=== PATIENT | male | born 1980 | race Hispanic/Latino ===

== ENCOUNTER 2019-07-14 19:45 | Emergency (ER) | payer SELFPAY ==
[2019-07-14] MEDS ORDERED: VALACYCLOVIR 500 MG TAB ONE (21:36)
[2019-07-14] MEDS ORDERED: IBUPROFEN 400 MG TAB ONE (21:37)
--- NOTE | 2019-07-14 22:05 | ER ---
Nurse's Notes [facility] Name: Luis Carlos Cobian Age: 38 yrs Sex: Male : 1980 Arrival Date: 07/14/2019 Time: 19:49 Bed 16 Private MD: Diagnosis: Acute pharyngitis;Herpesviral [herpes simplex] infections Presentation: 07/14 19:57 Presenting complaint: Patient states: "I started feeling a bad last night," Reports aj1 chills. Took Thera-flu and went to bed. When he woke up today he still had chills. Now he's having some back pain, sore throat, and he noticed blisters on his top lip. reports subjective fever. Transition of care: patient was not received from another setting of care. Onset of symptoms was July 13, 2019. Risk Assessment: Do you want to hurt yourself or someone else? Patient reports no desire to harm self or others. Initial Sepsis Screen: Does the patient meet any 2 criteria? No. Patient's initial sepsis screen is negative. Does the patient have a suspected source of infection? No. Patient's initial sepsis screen is negative. Care prior to arrival: None. 19:57 Method Of Arrival: Ambulatory aj1 19:57 Acuity: OPHELIA 4 aj1 Triage Assessment: 19:59 General: Appears in no apparent distress. uncomfortable, Behavior is calm, cooperative, aj1 appropriate for age. Pain: Complains of pain in back Pain currently is 9 out of 10 on a pain scale. Neuro: Level of Consciousness is awake, alert, obeys commands. Cardiovascular: Patient's skin is warm and dry. Respiratory: Airway is patent Respiratory effort is even, unlabored, Respiratory pattern is regular, symmetrical. Musculoskeletal: Range of motion: intact in all extremities. Historical: - Allergies: 19:59 No Known Allergies; aj1 - Home Meds: 19:59 None [Active]; aj1 - PMHx: 19:59 None; aj1 - PSHx: 19:59 None; aj1 - Immunization history:: Flu vaccine is not up to date. - Social history:: Smoking status: Patient/guardian denies using tobacco. - Ebola Screening: : Patient denies travel to an Ebola-affected area in the 21 days before illness onset. Screenin:30 Abuse screen: Denies threats or abuse. Nutritional screening: No deficits noted. jb4 Tuberculosis screening: No symptoms or risk factors identified. Fall Risk None identified. Assessment: 20:30 General: Appears in no apparent distress. uncomfortable, Behavior is calm, cooperative, jb4 appropriate for age. Pain: Complains of pain in right mid back, generalized Pain does not radiate. Pain currently is 10 out of 10 on a pain scale. Quality of pain is described as burning, aching, stabbing, throbbing. Neuro: Level of Consciousness is awake, alert, obeys commands, Oriented to person, place, time, situation. Cardiovascular: Patient's skin is warm and dry. Respiratory: Airway is patent Respiratory effort is even, unlabored, Respiratory pattern is regular, symmetrical. GI: No deficits noted. No signs and/or symptoms were reported involving the gastrointestinal system. : No deficits noted. No signs and/or symptoms were reported regarding the genitourinary system. EENT: No deficits noted. No signs and/or symptoms were reported regarding the EENT system. Derm: Skin is intact, Skin is pink, warm \\T\\ dry. Musculoskeletal: Circulation, motion, and sensation intact. Range of motion: intact in all extremities. 21:30 Reassessment: Patient appears in no apparent distress at this time. Patient and/or jb4 family updated on plan of care and expected duration. Pain level reassessed. Patient is alert, oriented x 3, equal unlabored respirations, skin warm/dry/pink. 22:22 Reassessment: Patient appears in no apparent distress at this time. Patient and/or jb4 family updated on plan of care and expected duration. Pain level reassessed. Patient is alert, oriented x 3, equal unlabored respirations, skin warm/dry/pink. Patient states feeling better. Vital Signs: 19:59 BP 152 / 87; Pulse 93; Resp 18; Temp 98.6; Pulse Ox 98% on R/A; Weight 81.65 kg (R); aj1 Height 5 ft. 6 in. (167.64 cm) (R); Pain 9/10; 21:15 BP 133 / 86; Pulse 86; Resp 16; Pulse Ox 97% on R/A; jb4 22:00 BP 137 / 89; Pulse 89; Resp 16; Pulse Ox 98% on R/A; jb4 19:59 Body Mass Index 29.05 (81.65 kg, 167.64 cm) aj1 ED Course: 19:49 Patient arrived in ED. mr 19:59 Triage completed. aj1 19:59 Arm band placed on Patient placed in waiting room, Patient notified of wait time. aj1 20:14 Federica Escalante FNP-C is [facility]. kb 20:14 Shailesh Benites MD is Attending Physician. kb 20:29 Jamie Brown, RN is Primary Nurse. jb4 20:30 Patient has correct armband on for positive identification. Bed in low position. Call jb4 light in reach. Side rails up X 1. 22:23 No provider procedures requiring assistance completed. Patient did not have IV access jb4 during this emergency room visit. Administered Medications: 21:57 Drug: Ibuprofen 800 mg Route: PO; jb4 22:22 Follow up: Response: No adverse reaction; Pain is decreased jb4 21:57 Drug: Valtrex 1000 mg Route: PO; jb4 22:22 Follow up: Response: No adverse reaction jb4 Outcome: 22:05 Discharge ordered by . kb 22:23 Discharged to home ambulatory, with friend. jb4 22:23 Condition: stable 22:23 Discharge instructions given to patient, family, Instructed on discharge instructions, follow up and referral plans. Demonstrated understanding of instructions, follow-up care. 22:23 Patient left the ED. jb4 Signatures: Federica Escalante FNP-C FNP-Mary Jane Parmar RN RN aj Kerr Jud mr Jamie Brown, RN RN jb4
--- NOTE | 2019-07-14 22:06 | EDPHYS ---
Physician Documentation [facility] Name: Luis Carlos Cobian Age: 38 yrs Sex: Male : 1980 Arrival Date: 07/14/2019 Time: 19:49 Bed 16 Private MD: ED Physician Shailesh Benites HPI: 07/14 22:02 This 38 yrs old Male presents to ER via Ambulatory with complaints of Fever, kb Back Pain, Facial Swelling. 22:02 The patient presents with sore throat. The patient describes throat pain as constant. kb Onset: The symptoms/episode began/occurred Onset: The symptoms/episode began/occurred last night. The patient has not experienced similar symptoms in the past. The patient has not recently seen a physician. 22:03 Severity of symptoms: At their worst the symptoms were moderate, in the emergency kb department the symptoms are unchanged. Modifying factors: The symptoms are alleviated by nothing, the symptoms are aggravated by swallowing, Patient's oral intake status: good. Associated signs and symptoms: Pertinent positives: chills, flu-like symptoms, Sore throat blisters on lip. Pt reports body aches, malaise, sore throat, fever, chills and blisters on top lip that started last night. . Historical: - Allergies: 19:59 No Known Allergies; aj1 - Home Meds: 19:59 None [Active]; aj1 - PMHx: 19:59 None; aj1 - PSHx: 19:59 None; aj1 - Immunization history:: Flu vaccine is not up to date. - Social history:: Smoking status: Patient/guardian denies using tobacco. - Ebola Screening: : Patient denies travel to an Ebola-affected area in the 21 days before illness onset. ROS: 22:01 Neck: Negative for injury, pain, and swelling, Cardiovascular: Negative for chest pain, kb palpitations, and edema, Respiratory: Negative for shortness of breath, cough, wheezing, and pleuritic chest pain, Abdomen/GI: Negative for abdominal pain, nausea, vomiting, diarrhea, and constipation, MS/Extremity: Negative for injury and deformity, Neuro: Negative for headache, weakness, numbness, tingling, and seizure. 22:01 Constitutional: Positive for body aches, chills, fatigue, fever, malaise. 22:01 ENT: Positive for sore throat. 22:01 Skin: Positive for blisters on top lip. Exam: 22:01 Constitutional: This is a well developed, well nourished patient who is awake, alert, kb and in no acute distress. Head/Face: Normocephalic, atraumatic. Neck: Trachea midline, no thyromegaly or masses palpated, and no cervical lymphadenopathy. Supple, full range of motion without nuchal rigidity, or vertebral point tenderness. No Meningismus. Chest/axilla: Normal chest wall appearance and motion. Nontender with no deformity. No lesions are appreciated. Cardiovascular: Regular rate and rhythm with a normal S1 and S2. No gallops, murmurs, or rubs. Normal PMI, no JVD. No pulse deficits. Respiratory: Lungs have equal breath sounds bilaterally, clear to auscultation and percussion. No rales, rhonchi or wheezes noted. No increased work of breathing, no retractions or nasal flaring. Abdomen/GI: Soft, non-tender, with normal bowel sounds. No distension or tympany. No guarding or rebound. No evidence of tenderness throughout. Skin: Warm, dry with normal turgor. Normal color with no rashes, no lesions, and no evidence of cellulitis. MS/ Extremity: Pulses equal, no cyanosis. Neurovascular intact. Full, normal range of motion. Neuro: Awake and alert, GCS 15, oriented to person, place, time, and situation. Cranial nerves II-XII grossly intact. Motor strength 5/5 in all extremities. Sensory grossly intact. Cerebellar exam normal. Normal gait. 22:01 ENT: TM's: are normal, Nose: is normal, Mouth: Lips: blisters to upper lip. Vital Signs: 19:59 BP 152 / 87; Pulse 93; Resp 18; Temp 98.6; Pulse Ox 98% on R/A; Weight 81.65 kg (R); aj1 Height 5 ft. 6 in. (167.64 cm) (R); Pain 9/10; 21:15 BP 133 / 86; Pulse 86; Resp 16; Pulse Ox 97% on R/A; jb4 22:00 BP 137 / 89; Pulse 89; Resp 16; Pulse Ox 98% on R/A; jb4 19:59 Body Mass Index 29.05 (81.65 kg, 167.64 cm) aj1 MDM: 20:14 Patient medically screened. kb 22:01 Data reviewed: vital signs, nurses notes. Data interpreted: Pulse oximetry: on room air kb is 97 %. Interpretation: normal. Counseling: I had a detailed discussion with the patient and/or guardian regarding: the historical points, exam findings, and any diagnostic results supporting the discharge/admit diagnosis, lab results, the need for outpatient follow up, a family practitioner, to return to the emergency department if symptoms worsen or persist or if there are any questions or concerns that arise at home. 07/14 20:11 Order name: Flu; Complete Time: 21:54 kb 07/14 20:11 Order name: Strep; Complete Time: 21:57 kb 07/14 22:01 Order name: Throat Culture EDMO Administered Medications: 21:57 Drug: Ibuprofen 800 mg Route: PO; jb4 22:22 Follow up: Response: No adverse reaction; Pain is decreased jb4 21:57 Drug: Valtrex 1000 mg Route: PO; jb4 22:22 Follow up: Response: No adverse reaction jb4 Disposition: 07/15 08:11 Co-signature as Attending Physician, Shailesh Benites MD I agree with the assessment and dangelo plan of care. Disposition: 07/14/19 22:05 Discharged to Home. Impression: Acute pharyngitis, Herpesviral [herpes simplex] infections. - Condition is Stable. - Discharge Instructions: Pharyngitis, [place]ure-ga-Digs, Cold Sore, [place]-wc-Toam. - Medication Reconciliation Form, Thank You Letter, Antibiotic Education, Prescription Opioid Use, Work release form form. - Follow up: Emergency Department; When: As needed; Reason: Worsening of condition. Follow up: Private Physician; When: 2 - 3 days; Reason: Recheck today's complaints, Continuance of care, Re-evaluation by your physician. Signatures: Dispatcher [employer] EDMS Federica Escalante, SURYA LIEBERMAN-Mary Jane Parmar RN RN Shailesh Mancilla MD MD cha Bryson, James, RN RN jb4 Corrections: (The following items were deleted from the chart) 07/14 22:03 22:02 Onset: The symptoms/episode began/occurred kb kb 22:23 22:05 07/14/2019 22:05 Discharged to Home. Impression: Acute pharyngitis; Herpesviral jb4 [herpes simplex] infections. Condition is Stable. Forms are Medication Reconciliation Form, Thank You Letter, Antibiotic Education, Prescription Opioid Use. Follow up: Emergency Department; When: As needed; Reason: Worsening of condition. Follow up: Private Physician; When: 2 - 3 days; Reason: Recheck today's complaints, Continuance of care, Re-evaluation by your physician. kb
[2019-07-14 22:55] VITALS: TEMP 98.6
[2019-07-14 22:58] VITALS: BP 137/89; O2SAT 98
== END 2019-07-14 22:23 | disposition home or self-care (01) ==
LOC: ER 19:45
DX: J02.9 Acute pharyngitis, unspecified (principal); B00.9 Herpesviral infection, unspecified
CPT/HCPCS: 87070; 87081; 87804; 99283

== ENCOUNTER 2020-02-23 20:42 | Emergency (ER) | payer SELFPAY ==
[2020-02-23 22:14] LABS: Absolute Lymphocytes (CBC) 1.5 K/uL (0.7-4.9); Basophils % 0.5 % (0-1.3); Hematocrit 41.5 % (39.6-49.0); Lymphocytes % 18.4 % (15.3-44.8); RBC Red Blood Cell Count 4.64 M/uL (4.33-5.43)
[2020-02-23 22:23] LABS: ALT/SGPT 36 U/L (12-78); AST/SGOT 21 U/L (15-37); Albumin 3.9 g/dL (3.4-5.0); Alkaline Phosphatase 87 U/L (45-117); BUN Blood Urea Nitrogen 15 mg/dL (7-18); Bicarbonate 27 mmol/L (21-32); Bilirubin Direct 0.1 mg/dL (0-0.2); Bilirubin Total 0.5 mg/dL (0.2-1.0); Glucose Level 90 mg/dL (74-106); Lipase 114 U/L (73-393); Potassium 3.1 mmol/L (3.5-5.1); Protein, Total 7.6 g/dL (6.4-8.2); Sodium Level 139 mmol/L (136-145)
[2020-02-23] MEDS ORDERED: KCL 20 MEQ/100 mL IVPB 20 MEQ/100 ML BAG IV ONE (22:50)
[2020-02-23] MEDS ORDERED: NA CHLORIDE 0.9% 1,000 ML ONE (22:50)
[2020-02-23] MEDS ORDERED: KETOROLAC 30 MG/ML INJ ONE (22:50)
--- NOTE | 2020-02-24 01:01 | ER ---
Nurse's Notes [facility] Name: Luis Carlos Cobian Age: 39 yrs Sex: Male : 1980 Arrival Date: 02/23/2020 Time: 20:44 Bed 6 Private MD: Diagnosis: Lower abdominal pain, unspecified;Hypokalemia Presentation: 02/22 20:58 Acuity: OPHELIA 3 sg 21:05 Chief complaint: Patient states: Intermittent right sided abdominal pain started today ll1 at 1000. Int. nausea. No fever. Coronavirus screen: Proceed with normal triage. Patient denies a cough. Patient denies shortness of breath or difficulty breathing. Patient denies measured and/or subjective temperature greater than 100.4F prior to today's visit. Patient denies travel on a cruise ship or to a country the [facility] currently lists as an affected area. Patient denies contact with known and/or suspected case of COVID-19. Ebola Screen: Patient denies travel to an Ebola-affected area in the 21 days before illness onset. Initial Sepsis Screen: Does the patient meet any 2 criteria? No. Patient's initial sepsis screen is negative. Does the patient have a suspected source of infection? No. Patient's initial sepsis screen is negative. Risk Assessment: Do you want to hurt yourself or someone else? Patient reports no desire to harm self or others. Onset of symptoms was February 23, 2020. 21:05 Method Of Arrival: Ambulatory ll1 Historical: - Allergies: 21:07 No Known Allergies; ll1 - PMHx: 21:07 seasonal allergies; constipation; ll1 - PSHx: 20:58 None; sg - Immunization history:: Adult Immunizations up to date. - Social history:: Smoking status: Patient denies any tobacco usage or history of. Smoking status: Patient denies any tobacco usage or history of. Patient uses alcohol, wine 3 times per week. Patient/guardian denies using street drugs. Screenin:08 Abuse screen: Denies threats or abuse. Nutritional screening: No deficits noted. ll1 Tuberculosis screening: No symptoms or risk factors identified. Fall Risk None identified. Assessment: 21:00 General: Appears in no apparent distress. uncomfortable, Behavior is calm, cooperative, jb4 appropriate for age. Pain: Complains of pain in abdomen Pain does not radiate. Pain currently is 7 out of 10 on a pain scale. Quality of pain is described as stabbing, Pain began Earlier today Is continuous. Neuro: Level of Consciousness is awake, alert, obeys commands, Oriented to person, place, time, situation. Cardiovascular: Patient's skin is warm and dry. Respiratory: Airway is patent Respiratory effort is even, unlabored, Respiratory pattern is regular, symmetrical. GI: Abdomen is flat, Bowel sounds present X 4 quads. Abd is soft and non tender X 4 quads. : No signs and/or symptoms were reported regarding the genitourinary system. EENT: No signs and/or symptoms were reported regarding the EENT system. Derm: Skin is intact, Skin is pink, warm \T\ dry. Musculoskeletal: Circulation, motion, and sensation intact. Range of motion: intact in all extremities. 22:00 Reassessment: Patient appears in no apparent distress at this time. Patient and/or jb4 family updated on plan of care and expected duration. Pain level reassessed. Patient is alert, oriented x 3, equal unlabored respirations, skin warm/dry/pink. 23:00 Reassessment: Patient appears in no apparent distress at this time. Patient and/or jb4 family updated on plan of care and expected duration. Pain level reassessed. Patient is alert, oriented x 3, equal unlabored respirations, skin warm/dry/pink. Patient states feeling better. 02/23 00:00 Reassessment: Patient appears in no apparent distress at this time. Patient and/or jb4 family updated on plan of care and expected duration. Pain level reassessed. Patient is alert, oriented x 3, equal unlabored respirations, skin warm/dry/pink. Vital Signs: 02/22 21:05 BP 137 / 95; Pulse 82; Resp 18; Temp 98.3; Pulse Ox 98% ; Pain 9/10; ll1 22:00 BP 146 / 106; Pulse 86; Resp 16; Pulse Ox 98% on R/A; jb4 23:00 BP 128 / 97; Pulse 77; Resp 16; Pulse Ox 98% on R/A; jb4 02/23 00:00 BP 126 / 83; Pulse 77; Resp 16; Pulse Ox 97% on R/A; jb4 00:55 BP 134 / 93; Pulse 72; Resp 16; Pulse Ox 100% on R/A; rv 01:13 Pain 7/10; rv ED Course: 02/22 20:44 Patient arrived in ED. cl3 20:58 Triage completed. sg 21:00 Patient has correct armband on for positive identification. Pulse ox on. NIBP on. rv 21:08 Arm band placed on Patient placed in an exam room, on a stretcher. ll1 21:15 Violet Htuchins FNP-C is [facility]. snw 21:15 Myron Valentin MD is Attending Physician. snw 21:17 Jamie Brown, JINA is Primary Nurse. jb4 21:44 Oral contrast given. 2 02/23 00:38 CT Abd/Pelvis - PO and IV Contrast In Process Unspecified. EDMS 01:14 No provider procedures requiring assistance completed. IV discontinued, intact, rv bleeding controlled, No redness/swelling at site. Pressure dressing applied. Administered Medications: 02/22 22:50 Drug: NS 0.9% 1000 ml Route: IV; Rate: 125 ml/hr; Site: right antecubital; [facility] 02/23 01:13 Follow up: IV Status: Completed infusion; IV Intake: 240ml 02/22 22:50 Drug: TORadol 30 mg Route: IVP; Site: right antecubital; [facility] 02/23 01:13 Follow up: Pain 7/10 Adult; Response: No adverse reaction; Pain is decreased 02/22 22:57 Drug: Potassium Chloride 20 mEq Route: IV; Rate: calculated rate; Site: right [facility] antecubital; 02/23 01:13 Follow up: IV Status: Completed infusion rv 01:14 Drug: Simethicone 240 mg Route: PO; rv 01:14 Follow up: Response: Medication administered at discharge. rv 01:14 Drug: Potassium Chloride 40 mEq Route: PO; rv 01:14 Follow up: Response: Medication administered at discharge. rv Intake: 01:13 IV: 240ml; Total: 240ml. rv Outcome: 01:00 Discharge ordered by . snw 01:14 Discharged to home ambulatory. rv 01:14 Condition: improved 01:14 Discharge instructions given to patient, Instructed on discharge instructions, follow up and referral plans. medication usage, Demonstrated understanding of instructions, follow-up care, medications, Prescriptions given X 2. 01:15 Patient left the ED. rv Signatures: Dispatcher [employer] EDMS Georges Montez, RN RN sg Violet Hutchins, SALES TEACHER-C SALES TEACHER-Csnw Jamie Brown, RN RN jb4 Erlinda Moreland 2 Jonathan Nam, RN RN Michelle Millan cl3 Ivet Tran RN RN ll1
--- NOTE | 2020-02-24 01:01 | EDPHYS ---
Physician Documentation [facility] Name: Luis Carlos Cobian Age: 39 yrs Sex: Male : 1980 Arrival Date: 02/23/2020 Time: 20:44 Bed 6 Private MD: ED Physician Myron Valentin HPI: 02/22 21:45 This 39 yrs old Male presents to ER via Ambulatory with complaints of snw Abdominal Pain. 21:45 The patient presents with abdominal pain right lower quadrant. Onset: The snw symptoms/episode began/occurred suddenly, this morning. The symptoms do not radiate. Associated signs and symptoms: Pertinent positives: anorexia, worsening pain. The symptoms are described as shooting, stabbing. Severity of pain: At its worst the pain was moderate. The patient has not experienced similar symptoms in the past. The patient has not recently seen a physician. Historical: - Allergies: 21:07 No Known Allergies; ll1 - PMHx: 21:07 seasonal allergies; constipation; ll1 - PSHx: 20:58 None; sg - Immunization history:: Adult Immunizations up to date. - Social history:: Smoking status: Patient denies any tobacco usage or history of. Smoking status: Patient denies any tobacco usage or history of. Patient uses alcohol, wine 3 times per week. Patient/guardian denies using street drugs. ROS: 21:45 Constitutional: Negative for fever, chills, and weight loss, Eyes: Negative for injury, snw pain, redness, and discharge, ENT: Negative for injury, pain, and discharge, Neck: Negative for injury, pain, and swelling, Cardiovascular: Negative for chest pain, palpitations, and edema, Respiratory: Negative for shortness of breath, cough, wheezing, and pleuritic chest pain, Back: Negative for injury and pain, : Negative for injury, bleeding, discharge, and swelling, MS/Extremity: Negative for injury and deformity, Skin: Negative for injury, rash, and discoloration, Neuro: Negative for headache, weakness, numbness, tingling, and seizure. 21:45 Abdomen/GI: Positive for abdominal pain, of the right lower quadrant, last bm at 1600, no diarrhea, no blood. Exam: 21:45 Constitutional: This is a well developed, well nourished patient who is awake, alert, snw and in no acute distress. Head/Face: Normocephalic, atraumatic. Eyes: Pupils equal round and reactive to light, extra-ocular motions intact. Lids and lashes normal. Conjunctiva and sclera are non-icteric and not injected. Cornea within normal limits. Periorbital areas with no swelling, redness, or edema. ENT: Nares patent. No nasal discharge, no septal abnormalities noted. Tympanic membranes are normal and external auditory canals are clear. Oropharynx with no redness, swelling, or masses, exudates, or evidence of obstruction, uvula midline. Mucous membranes moist. Neck: Trachea midline, no thyromegaly or masses palpated, and no cervical lymphadenopathy. Supple, full range of motion without nuchal rigidity, or vertebral point tenderness. No Meningismus. Chest/axilla: Normal chest wall appearance and motion. Nontender with no deformity. No lesions are appreciated. Cardiovascular: Regular rate and rhythm with a normal S1 and S2. No gallops, murmurs, or rubs. Normal PMI, no JVD. No pulse deficits. Respiratory: Lungs have equal breath sounds bilaterally, clear to auscultation and percussion. No rales, rhonchi or wheezes noted. No increased work of breathing, no retractions or nasal flaring. Back: No spinal tenderness. No costovertebral tenderness. Full range of motion. Skin: Warm, dry with normal turgor. Normal color with no rashes, no lesions, and no evidence of cellulitis. MS/ Extremity: Pulses equal, no cyanosis. Neurovascular intact. Full, normal range of motion. Neuro: Awake and alert, GCS 15, oriented to person, place, time, and situation. Cranial nerves II-XII grossly intact. Motor strength 5/5 in all extremities. Sensory grossly intact. Cerebellar exam normal. Normal gait. Psych: Awake, alert, with orientation to person, place and time. Behavior, mood, and affect are within normal limits. 21:45 Abdomen/GI: Inspection: abdomen appears normal, Bowel sounds: normal, Palpation: moderate abdominal tenderness, in the right lower quadrant, voluntary guarding, is elicited in the right lower quadrant. Vital Signs: 21:05 BP 137 / 95; Pulse 82; Resp 18; Temp 98.3; Pulse Ox 98% ; Pain 9/10; ll1 22:00 BP 146 / 106; Pulse 86; Resp 16; Pulse Ox 98% on R/A; jb4 23:00 BP 128 / 97; Pulse 77; Resp 16; Pulse Ox 98% on R/A; jb4 02/23 00:00 BP 126 / 83; Pulse 77; Resp 16; Pulse Ox 97% on R/A; jb4 00:55 BP 134 / 93; Pulse 72; Resp 16; Pulse Ox 100% on R/A; rv 01:13 Pain 7/10; rv MDM: 02/22 21:22 Patient medically screened. snw 02/23 01:12 Data reviewed: vital signs, nurses notes. Data interpreted: Pulse oximetry: on room air snw is 100 %. Interpretation: normal. Counseling: I had a detailed discussion with the patient and/or guardian regarding: the historical points, exam findings, and any diagnostic results supporting the discharge/admit diagnosis, the presence of at least one elevated blood pressure reading (>120/80) during this emergency department visit, lab results, radiology results, the need for outpatient follow up, to return to the emergency department if symptoms worsen or persist or if there are any questions or concerns that arise at home. Special discussion: Based on the patient's Hx, exam, and Dx evaluation, there is no indication for emergent surgery or inpatient Tx. It is understood by the patient/guardian that if the Sx's persist or worsen they need to return immediately for re-evaluation. I have referred the patient to see his PCP for further evaluation of high blood pressure. Based on the history and exam findings, there is no indication for further emergent testing or inpatient evaluation. I discussed with the patient/guardian the need to see the deputy sheriff generalist for further evaluation of the symptoms. I discussed with the patient/guardian the need to see the primary care provider for further evaluation of the symptoms. 02/22 21:23 Order name: Basic Metabolic Panel; Complete Time: 22:24 snw 02/22 21:23 Order name: CBC with Diff; Complete Time: 22:37 snw 02/22 21:23 Order name: Creatinine for Radiology; Complete Time: 22:24 snw 02/22 21:23 Order name: Hepatic Function; Complete Time: 22:24 snw 02/22 21:23 Order name: Lipase; Complete Time: 22:24 snw 02/22 21:42 Order name: CT Abd/Pelvis - PO and IV Contrast snw 02/22 21:23 Order name: IV Saline Lock; Complete Time: 21:55 snw 02/22 21:23 Order name: Labs collected and sent; Complete Time: 21:55 snw Administered Medications: 02/22 22:50 Drug: NS 0.9% 1000 ml Route: IV; Rate: 125 ml/hr; Site: right antecubital; [facility] 02/23 01:13 Follow up: IV Status: Completed infusion; IV Intake: 240ml rv 02/22 22:50 Drug: TORadol 30 mg Route: IVP; Site: right antecubital; [facility] 02/23 01:13 Follow up: Pain 7 Adult; Response: No adverse reaction; Pain is decreased rv 02/22 22:57 Drug: Potassium Chloride 20 mEq Route: IV; Rate: calculated rate; Site: right [facility] antecubital; 02/23 01:13 Follow up: IV Status: Completed infusion rv 01:14 Drug: Simethicone 240 mg Route: PO; rv 01:14 Follow up: Response: Medication administered at discharge. rv 01:14 Drug: Potassium Chloride 40 mEq Route: PO; rv 01:14 Follow up: Response: Medication administered at discharge. rv Disposition: 03:54 Co-signature as Attending Physician, Myron Valentin MD I agree with the assessment and kdr plan of care. Disposition: 02/24/20 01:00 Discharged to Home. Impression: Lower abdominal pain, unspecified, Hypokalemia. - Condition is Stable. - Discharge Instructions: Abdominal Pain, Adult, Potassium Content of Foods, Hypertension, Intestinal Gas and Gas Pains, Pediatric. - Prescriptions for Gas- X - take 240 milligram by ORAL route 2-3 times daily; 1 box. promethazine 25 mg Oral Tablet - take 1 tablet by ORAL route every 6 hours As needed; 20 tablet. - Work release form, Medication Reconciliation Form, Thank You Letter, Antibiotic Education, Prescription Opioid Use form. - Follow up: Emergency Department; When: As needed; Reason: Worsening of condition. Follow up: Private Physician; When: 2 - 3 days; Reason: Recheck today's complaints, Continuance of care, Re-evaluation by your physician. Signatures: Dispatcher [employer] Georges Diaz RN RN sg Myron Valentin MD MD [facility] Violet Hutchins, CAMPUS AIDE-C CAMPUS AIDE-[facility] Jamie Brown, RN RN jb4 Jonathan Nam RN RN rv Ivet Tran RN RN ll1 Corrections: (The following items were deleted from the chart) 01:15 01:00 02/24/2020 01:00 Discharged to Home. Impression: Lower abdominal pain, rv unspecified; Hypokalemia. Condition is Stable. Forms are Medication Reconciliation Form, Thank You Letter, Antibiotic Education, Prescription Opioid Use. Follow up: Emergency Department; When: As needed; Reason: Worsening of condition. Follow up: Private Physician; When: 2 - 3 days; Reason: Recheck today's complaints, Continuance of care, Re-evaluation by your physician. snw
[2020-02-24] MEDS ORDERED: SIMETHICONE 80 MG TAB ONE (01:10)
[2020-02-24] MEDS ORDERED: POTASSIUM CL SA 10 MEQ TAB PO ONE (01:10)
[2020-02-24 01:20] VITALS: TEMP 98.3
[2020-02-24 01:26] VITALS: BP 134/93; O2SAT 100
--- NOTE | 2020-02-24 10:48 | RAD REPORT ---
EXAM DESCRIPTION: CT - Abdomen Pelvis W Contrast - 02/24/2020 5:41 am CLINICAL HISTORY: The patient is 39 years old and is Male; ABD PAIN TECHNIQUE: Axial computed tomography images of the abdomen and pelvis with intravenous contrast. S agittal and coronal reformatted images were created and reviewed. This CT exam was performed using one or more of the following dose reduction techniques: automated exposure control, adjustment of t he mA and/or kV according to patient size, and/or use of iterative reconstruction technique. DLP: 1438 mGy*cm COMPARISON: None. FINDINGS: LUNG BASES: Lung bases are clear. HEART: Visualized heart is normal. ABDOMEN: LIVER: Unremarkable. No mass. GALLBLADDER AND BILE DUCTS: Unremarkable. No calcified stones. No ductal dilation. PANCREAS: Unremarkable. No mass. No ductal dilation. SPLEEN: Unremarkable. No splenomegaly. ADRENALS: Unremarkable. No mass. KIDNEYS AND URETERS: Unremarkable. No solid mass. No hydronephrosis. STOMACH AND BOWEL: Enteric contrast in the stomach and out of the small bowel and proximal/mid lar ge bowel. No mucosal thickening, obstruction or perforation. PELVIS: APPENDIX: The appendix is seen and is within normal limits. BLADDER: The bladder is decompressed. REPRODUCTIVE: Unremarkable as visualized. ABDOMEN and PELVIS: INTRAPERITONEAL SPACE: Unremarkable. No free air. No significant fluid collection. BONES/JOINTS: No acute fracture. No dislocation. SOFT TISSUES: Small fat-containing umbilical hernia. VASCULATURE: Unremarkable. No abdominal aortic aneurysm. LYMPH NODES: Unremarkable. No enlarged lymph nodes. IMPRESSION: No acute abdominal or pelvic abnormality. Electronically signed by: Elder Anderson DO 02/24/2020 12:44 AM CDT Due to temporary technical issues with the PACS/Fluency reporting system, reports are being signed by the in house radiologist as a courtesy to ensure prompt reporting. The interpreting radiologist is jacek regaladoly responsible for the content of the report.
== END 2020-02-24 01:15 | disposition home or self-care (01) ==
LOC: ER 20:42
DX: E87.6 Hypokalemia (principal)
CPT/HCPCS: 36415; 74177; 80048; 80076; 83690; 85025; 96365; 96366; 96375; 99284; J7030; Q9967